=== PATIENT | female | born 2000 | race Hispanic/Latino ===

== ENCOUNTER 2024-07-14 11:03 | Emergency (ER) | payer OTHER ==
[~2024-07-14] VITALS: Ht 152.4 cm; Wt 71.8 kg
[2024-07-14] MEDS ORDERED: TETANUS-DIPHTHERIA TOXOIDS/PF 0.5 ML VIAL IM ONE (12:00)
[2024-07-14] MEDS ORDERED: DIPHTH,PERTUSS(ACELL),TET VAC 0.5 ML SYRINGE IM ONE (12:30)
[2024-07-14 12:53] VITALS: BP 122/74
== END 2024-07-14 12:53 | disposition home or self-care (01) ==
LOC: ED 11:03
DX: S61.442A Puncture wound with foreign body of left hand, initial encounter (principal); W45.8XXA Other foreign body or object entering through skin, initial encounter
CPT/HCPCS: 90471; 90715; 99283-25